=== PATIENT | female | born 1970 ===

== ENCOUNTER 2020-06-12 13:26 | Emergency (ER) | payer SELFPAY ==
[~2020-06-12] VITALS: Ht 149.9 cm; Wt 52.9 kg
--- NOTE | 2020-06-12 14:05 | NUR ---
Assumed care of patient. C/O heavy VB and cramping x 2 weeks. Patient had similar episode roughly 6 months ago. Hx anemia and hypothryoidism. NAD. Will continue to monitor.
--- NOTE | 2020-06-12 14:18 | NUR ---
Report to Catherine De La Torre RN
--- NOTE | 2020-06-12 14:30 | NUR ---
ASSUMED CARE OF PATIENT. LABS DRAWN. PT RESTING IN ROOM. VS STABLE. NO ACUTE DISTRESS NOTED. WILL CONTINUE TO MONITOR.
[2020-06-12 14:35] LABS: BASOPHILS % (AUTO) 1 % (0-1); EOSINOPHILS % (AUTO) 2 % (1-7); LYMPHOCYTES % (AUTO) 30 % (22-44); MEAN CORPUSCULAR HEMOGLOBIN 32.2 pg (27.0-34.8); MEAN CORPUSCULAR HGB CONC 33.8 g/dL (32.4-35.8); MEAN PLATELET VOLUME 7.5 fL (7.4-10.4); MONOCYTES % (AUTO) 8 % (2-9); NEUTROPHILS % (AUTO) 59 % (42-75); PLATELET COUNT 317 x10^3/uL (130-400); RED BLOOD COUNT 3.94 x10^6/uL (3.82-5.3); RED CELL DISTRIBUTION WIDTH 13.3 % (9.6-15.2)
[2020-06-12 14:36] LABS: MD NO
--- NOTE | 2020-06-12 14:36 | NUR ---
PT IN [place]
[2020-06-12 14:45] LABS: % IRON SATURATION 59 % (20-55); ALBUMIN 3.7 g/dL (3.4-5.0); ANION GAP 4 mmol/L (5-15); CALCIUM 8.4 mg/dL (8.5-10.1); CHLORIDE 113 mmol/L (98-107); CREATININE 0.76 mg/dL (0.55-1.02); IRON LEVEL 186 mcg/dL (50-170); TOTAL IRON BINDING CAPACITY 316 mcg/dL (250-450)
[2020-06-12 14:46] LABS: INTERNATIONAL NORMALIZED RATIO 1.01 (0.93-1.1); PROTHROMBIN TIME 10.7 Seconds (9.6-11.5)
--- NOTE | 2020-06-12 15:27 | NUR ---
PT RESTING IN ROOM. NO ACUTE DISTRESS NOTED. CALL LIGHT IN PLACE. WILL CONTINUE TO MONITOR.
[2020-06-12 15:40] VITALS: BP 100/55
== END 2020-06-12 15:44 | disposition home or self-care (01) ==
LOC: ED 15:14
DX: N93.8 Other specified abnormal uterine and vaginal bleeding (principal); E03.9 Hypothyroidism, unspecified; F17.210 Nicotine dependence, cigarettes, uncomplicated
CPT/HCPCS: 36415; 76830; 80048; 82040; 83540; 83550; 84703; 85025; 85610; 86850; 86900; 99284; 99406